=== PATIENT | female | born 1945 | race Caucasian/White ===

== ENCOUNTER 2018-09-12 13:57 | Emergency (ER) | payer OTHER ==
[2018-09-12 14:13] VITALS: BP 121/64; PULSE 89; TEMP 98; BMI 27.7
--- NOTE | 2018-09-12 14:49 | PDOC ---
History of Present Illness - General Chief Complaint: Wound Stated Complaint: CYST ON NECK Time Seen by Provider: 09/12/18 14:35 History Source: Patient Exam Limitations: No Limitations - History of Present Illness Initial Comments: 09/12/18 14:42 HISTORY OF PRESENT ILLNESS: This is a 73-year-old woman past medical history of hypertension, hyperlipidemia and COPD who presents emergency department for evaluation of "bump" to the right side of her posterior neck. Patient reports which she described as an ingrown hair which is progressively gotten more painful and swollen over the past 4 days. Patient reports inability to put her head down due to pain. She denies any discharge or drainage from the wound, fevers, chills, headaches or blurred vision. No recent travel or sick contacts. PAST MEDICAL HISTORY: HTN, HLD, COPD SURGICAL HISTORY: Denies ALLERGIES: No known drug allergies REVIEW OF SYSTEMS General/Constitutional: Denies fever or chills. Denies weakness, weight change. HEENT: Denies change in vision. Denies ear pain or discharge. Denies sore throat. Cardiovascular: Denies chest pain or shortness of breath. Respiratory: Denies cough, wheezing, or hemoptysis. Gastrointestinal: Denies nausea, vomiting, diarrhea or constipation. Denies rectal bleeding. Genitourinary: Denies dysuria, frequency, or change in urination. Musculoskeletal: Denies joint or muscle swelling or pain. Denies neck or back pain. Skin and breasts: see HPI Neurologic: Denies headache, vertigo, loss of consciousness, or loss of sensation. Psychiatric: Denies depression or anxiety. Endocrine: Denies increased thirst. Denies abnormal weight change. Hematologic/Lymphatic: Denies anemia, easy bleeding, or history of blood clots. Allergic/Immunologic: Denies hives or skin allergy. Denies latex allergy. PHYSICAL EXAM General Appearance: Well-appearing, appropriately dressed. No apparent distress , no intoxication. HEENT: EOMI, PERRLA, normal ENT inspection, normal voice, TMs normal, pharynx normal. No conjunctival pallor. No photophobia, scleral icterus. Neck: Supple. Trachea midline. No tenderness, rigidity, carotid bruit, stridor , lymphadenopathy, or thyromegaly. Respiratory/Chest: Lungs CTAB. No shortness of breath, chest tenderness, respiratory distress, accessory muscle use. No crackles, rales, rhonchi, stridor , wheezing, dullness Cardiovascular: RRR. S1, S2. No JVD, murmur, bradycardia, tachycardia. Vascular Pulses: Dorsalis-Pedis (R): 2+, Dorsalis-Pedis (L): 2+ Gastrointestinal/Abdominal: Normal bowel sounds. Abdomen soft, non-distended. No tenderness or rebound tenderness. No organomegaly, pulsatile mass, guarding, hernia, hepatomegaly, splenomegaly. Lymphatic: No adenopathy, tenderness. Musculoskeletal/Extremities: Normal inspection. FROM of all extremities, normal capillary refill. Pelvis Stable. No CVA tenderness. No tenderness to extremities, pedal edema, swelling, erythema or deformity. Integumentary: 4 cm circular area of induration present to right posterior lateral neck. 2 cm circular area of erythema present in the center of the induration. No fluctuance palpated. Unable to express fluid from wound. Full range of motion of neck noted. Neurologic: director medicaid II-XII intact. Fully oriented, alert. Appropriate mood/affect. Motor strength 5/5. No appreciable EOM palsy, facial droop or sensory deficit. Past History - Past Medical History Allergies/Adverse Reactions: Allergies Allergy/AdvReac Type Severity Reaction Status Date / Time No Known Allergies Allergy Verified 09/12/18 14:06 Home Medications: Ambulatory Orders Amlodipine Besylate [Norvasc -] 5 mg PO DAILY 09/12/18 Atorvastatin Calcium 40 mg PO HS 09/12/18 Budesonide/Formeterol Fumarate [SYMBICORT 160/4.5mcg -] 1 inh PO BID 09/12/18 Cephalexin Monohydrate [Keflex -] 500 mg PO Q6H #28 capsule 09/12/18 Losartan/Hydrochlorothiazide [Losartan-Hctz 100-25 mg Tab] 1 each PO DAILY 09/12 Sulfamethoxazole/Trimethoprim [Bactrim Ds -] 1 tab PO BID #14 tablet 09/12/18 Tiotropium [place] [Spiriva] 1 inh PO DAILY 09/12/18 COPD: Yes HTN: Yes Hypercholesterolemia: Yes - Suicide/Smoking/Psychosocial Hx Smoking History: Current every day smoker Information on smoking cessation initiated: No *Physical Exam - Vital Signs Last Vital Signs Temp Pulse Resp BP Pulse Ox 98 F 89 18 121/64 98 09/12/18 14:11 09/12/18 14:11 09/12/18 14:11 09/12/18 14:11 09/12/18 14:11 Moderate Sedation - Procedure Monitoring Vital Signs: Procedure Monitoring Vital Signs Temperature 98 F 09/12/18 14:11 Pulse Rate 89 09/12/18 14:11 Respiratory Rate 18 09/12/18 14:11 Blood Pressure 121/64 09/12/18 14:11 O2 Sat by Pulse Oximetry (%) 98 09/12/18 14:11 Medical Decision Making - Medical Decision Making 09/12/18 14:42 A/P: 73-year-old woman with cellulitis to the posterior of her neck 4 cm circular area of induration noted to the right lateral posterior neck. 2 cm circular area of erythema noted in the center No fluctuance noted Unable to express any fluid We'll discharge the patient home to continue using warm soaks the prescription for Keflex and Bactrim. Patient has been instructed to return to care in 2 days for reevaluation of her wound at that time. I discussed the physical exam findings, ancillary test results and final diagnoses with the patient. I answered all of the patient's questions. The patient was satisfied with the care received and felt comfortable with the discharge plan and treatment plan. The patient will call their primary care physician within 24 hours to arrange follow-up and will return to the Emergency Department with any new, persistent or worsening symptoms. *DC/Admit/Observation/Transfer Diagnosis at time of Disposition: Cellulitis Qualifiers: Site of cellulitis: neck Qualified Code(s): L03.221 - Cellulitis of neck - Discharge Dispostion Disposition: HOME Condition at time of disposition: Stable Decision to Admit order: No - Prescriptions Prescriptions: Cephalexin Monohydrate [Keflex -] 500 mg PO Q6H #28 capsule Sulfamethoxazole/Trimethoprim [Bactrim Ds -] 1 tab PO BID #14 tablet - Referrals Referrals: Jass Brown MD [Primary Care Provider] - - Patient Instructions Additional Instructions: Take Keflex 500 mg 4 times a day for the next 7 days Take Bactrim DS one tablet twice a day for the next 7 days Finish all antibiotics even if you feel better. Apply warm compresses to affected area as needed. Return to emergency department for any worsening pain, drainage,fevers, change in behavior or any other concerns. Thank you very much for choosing us to provide your emergent health care needs. - Post Discharge Activity
== END 2018-09-12 14:58 | disposition home or self-care (01) ==
LOC: JERFT 13:57
DX: L03.221 Cellulitis of neck (principal); I10 Essential (primary) hypertension; E78.00 Pure hypercholesterolemia, unspecified; J44.9 Chronic obstructive pulmonary disease, unspecified
CPT/HCPCS: 99281-25

== ENCOUNTER 2018-09-14 08:42 | Emergency (ER) | payer OTHER ==
[2018-09-14 08:47] VITALS: BP 98/60; PULSE 98; TEMP 98.4; BMI 27.7
--- NOTE | 2018-09-14 09:25 | PDOC ---
Suture Removal/Wound Check HPI - History of Present Illness Chief Complaint: Revisit,Wound Recheck Stated Complaint: FOLLOW UP / CYST ON NECK Time Seen by Provider: 09/14/18 09:16 History Source: Yes: Patient Exam Limitations: Yes: No Limitations - Previous ED Treatment Tetanus Immunization: Yes: Up to Date (73y/o F with R posterior neck abscess here for wound check) Past History - Travel Traveled outside of the country in the last 30 days: No Close contact w/someone who was outside of country & ill: No - Past Medical History Allergies/Adverse Reactions: Allergies Allergy/AdvReac Type Severity Reaction Status Date / Time No Known Allergies Allergy Verified 09/14/18 08:45 Home Medications: Ambulatory Orders Amlodipine Besylate [Norvasc -] 5 mg PO DAILY 09/12/18 Atorvastatin Calcium 40 mg PO HS 09/12/18 Budesonide/Formeterol Fumarate [SYMBICORT 160/4.5mcg -] 1 inh PO BID 09/12/18 Cephalexin Monohydrate [Keflex -] 500 mg PO Q6H #28 capsule 09/12/18 Losartan/Hydrochlorothiazide [Losartan-Hctz 100-25 mg Tab] 1 each PO DAILY 09/12 Sulfamethoxazole/Trimethoprim [Bactrim Ds -] 1 tab PO BID #14 tablet 09/12/18 Tiotropium [place] [Spiriva] 1 inh PO DAILY 09/12/18 COPD: Yes HTN: Yes Hypercholesterolemia: Yes - Suicide/Smoking/Psychosocial Hx Smoking History: Current every day smoker Information on smoking cessation initiated: No Suture Removal/Wound Check PE - Physical Exam Location of Laceration/Wound: right: Head (posterior neck) *Review of Systems - Review of Systems Constitutional: No: Chills, Fever Cardiac (ROS): No: Lightheadedness Integumentary: Yes: Other (posterior neck abscess) Neurological: No: Headache *Physical Exam - Vital Signs Last Vital Signs Temp Pulse Resp BP Pulse Ox 98.4 F 98 H 20 98/60 99 09/14/18 08:45 09/14/18 08:45 09/14/18 08:45 09/14/18 08:45 09/14/18 08:45 - Physical Exam General Appearance: Yes: Nourished Respiratory/Chest: positive: Lungs Clear, Normal Breath Sounds Cardiovascular: positive: Regular Rhythm, Regular Rate, S1, S2 Integumentary: positive: Erythema, Other (3cm indurated area in lateral posterior neck, no fluctance, no streaking or discharge noted. no warmth) Moderate Sedation - Procedure Monitoring Vital Signs: Procedure Monitoring Vital Signs Temperature 98.4 F 09/14/18 08:45 Pulse Rate 98 H 09/14/18 08:45 Respiratory Rate 20 09/14/18 08:45 Blood Pressure 98/60 09/14/18 08:45 O2 Sat by Pulse Oximetry (%) 99 09/14/18 08:45 Medical Decision Making - Medical Decision Making 09/14/18 09:29 73 years old female seen in the emergency room 2 days ago for posterior lateral neck lump, no fluctuance on exam, I&D was not done. Patient was started on Keflex and Bactrim and was advised to return to the emergency room in 2 days for wound check. Today Patient returns for wound check she denies any fevers any chills she is compliant with antibiotic as previously recommended and she admitted to apply warm compresses. She did admits to some discomfort in the area but no headaches. Physical examination consistent with a 3 cm indurated mass in the right lateral neck there is no fluctuant there is no streaking in no warmth. Patient recommended to continue warm compresses and antibiotic return to the emergency room in 2 days for another wound check. Strict return instructions also given fever chills or headaches or worsening swelling. *DC/Admit/Observation/Transfer Diagnosis at time of Disposition: Wound check, abscess - Discharge Dispostion Disposition: HOME Condition at time of disposition: Good Decision to Admit order: No - Referrals Referrals: Jass Brown MD [Primary Care Provider] - - Patient Instructions Printed Discharge Instructions: DI for Wound Infection Additional Instructions: Please Take antibiotics as previously prescribed Apply warm compresses 3-4 times a day to the affected area. Return to the emergency room in 2 days for wound check You may return sooner if there is worsening redness or swelling to the area. Otherwise follow-up with primary care doctor - Post Discharge Activity
== END 2018-09-14 09:38 | disposition home or self-care (01) ==
LOC: JERFT 08:42
DX: Z09 Encounter for follow-up examination after completed treatment for conditions other than malignant neoplasm (principal); R22.1 Localized swelling, mass and lump, neck
CPT/HCPCS: 99281-25

== ENCOUNTER 2020-10-25 15:01 | Inpatient (IN) | payer OTHER ==
[2020-10-25] MEDS ORDERED: SODIUM CHLORIDE 0.9% 1000 ML INFUS.BAG IV ONE (16:00)
[2020-10-25 16:26] LABS: BASO % 0.4 % (0-2.0); EOS % 0.4 % (0-4.5); HEMATOCRIT 29.2 % (32.4-45.2); HEMOGLOBIN 9.4 GM/dL (10.7-15.3); LYMPH % 6.5 % (8-40); MCH 29.1 pg (25.7-33.7); MCHC 32.3 g/dl (32.0-36.0); MEAN CELL VOLUME 90.1 fl (80-96); MEAN PLT VOLUME 9.7 fl (7.5-11.1); MONO % 7.9 % (3.8-10.2); NEUT % 84.8 % (42.8-82.8); PLATELET COUNT 153 K/MM3 (134-434); RBC 3.24 M/mm3 (3.60-5.2); RDW 13.8 % (11.6-15.6); WHITE BLOOD COUNT 12.8 K/mm3 (4.0-10.0)
[2020-10-25 16:34] LABS: INR 1.01 (0.83-1.09); PROTHROMBIN TIME (PATIENT) 12.2 SEC (9.7-13.0)
[2020-10-25 16:36] LABS: ACTIVATED PTT 26.4 SECONDS (25.2-36.5)
[2020-10-25 16:37] LABS: CHLORIDE 110 mmol/L (98-107); POTASSIUM 4.6 mmol/L (3.5-5.1); SODIUM 142 mmol/L (136-145)
[2020-10-25 16:39] LABS: CALCIUM 8.4 mg/dL (8.5-10.1)
[2020-10-25 16:40] LABS: ALBUMIN 2.7 g/dl (3.4-5.0); ANION GAP 9 MMOL/L (8-16); BLOOD UREA NITROGEN 38.6 mg/dL (7-18); CO2 24 mmol/L (21-32); GLUCOSE,RANDOM 108 mg/dL (74-106)
[2020-10-25 16:43] LABS: CREATININE 1.7 mg/dL (0.55-1.3); SGOT/AST 25 U/L (15-37); SGPT/ALT 23 U/L (13-61)
[2020-10-25 16:45] LABS: BILIRUBIN,TOTAL 0.6 mg/dL (0.2-1); TOT PROT 5.6 g/dl (6.4-8.2)
[2020-10-25 16:46] LABS: ALK PHOS 115 U/L (45-117)
[2020-10-25] MEDS ORDERED: CLINDAMYCIN 600MG PREMIX IVPB 600 MG/50 ML BAG IVPB ONE ×2 (16:55→17:45)
[2020-10-25] MEDS ORDERED: SODIUM CHLORIDE 1,000 ML IV SCH (23:45)
[2020-10-25] MEDS ORDERED: ACETAMINOPHEN 325 MG TABLET (FP) PO PRN (23:46)
[2020-10-26] MEDS ORDERED: CLINDAMYCIN 600MG PREMIX IVPB 600 MG/50 ML BAG IVPB ONE ×2 (04:01→10:13)
[2020-10-26] MEDS ORDERED: PIPERACILLIN/TAZOB 3.375 GM 3.375 GM/50 ML BAG IVPB ONE ×2 (04:01→10:14)
[2020-10-26] MEDS: CLINDAMYCIN 600MG PREMIX IVPB 600 MG/50 ML BAG IVPB SCH ×2 (04:18→10:36)
[2020-10-26] MEDS: PIPERACILLIN/TAZOB 3.375 GM 3.375 GM in DEXTROSE 5%-WATER - 50 ML IVPB SCH ×2 (06:39→10:41)
[2020-10-26 07:35] LABS: BASO % 0.8 % (0-2.0); EOS % 1.3 % (0-4.5); HEMATOCRIT 28.9 % (32.4-45.2); HEMOGLOBIN 9.7 GM/dL (10.7-15.3); MCH 30.2 pg (25.7-33.7); MCHC 33.6 g/dl (32.0-36.0); MEAN CELL VOLUME 89.7 fl (80-96); MEAN PLT VOLUME 9.9 fl (7.5-11.1); NEUT % 70.9 % (42.8-82.8); PLATELET COUNT 164 K/MM3 (134-434); RBC 3.22 M/mm3 (3.60-5.2); WHITE BLOOD COUNT 9.2 K/mm3 (4.0-10.0)
[2020-10-26] MEDS: HEPARIN NA (PORCINE) 5,000 UNITS/ML 1ML VIAL SQ SCH ×3 (07:45→23:23)
[2020-10-26 07:52] LABS: POTASSIUM 4.1 mmol/L (3.5-5.1)
[2020-10-26 08:00] LABS: ALBUMIN 2.8 g/dl (3.4-5.0); BLOOD UREA NITROGEN 31.9 mg/dL (7-18); CALCIUM 8.6 mg/dL (8.5-10.1); TOT PROT 6.2 g/dl (6.4-8.2)
[2020-10-26 08:01] LABS: MAGNESIUM 1.9 mg/dL (1.8-2.4)
[2020-10-26] MEDS ORDERED: HEPARIN NA (PORCINE) 5,000 UNITS/ML 1ML VIAL ONE ×2 (08:01→14:47)
[2020-10-26 08:03] LABS: CREATININE 1.3 mg/dL (0.55-1.3); PHOSPHOROUS 3.1 mg/dL (2.5-4.9)
[2020-10-26 08:04] LABS: BILIRUBIN,TOTAL 0.7 mg/dL (0.2-1)
[2020-10-26] MEDS: BUDESONIDE/FORMETEROL FUMARATE 160/4.5 mcg INHALER IH SCH ×2 (10:37→23:23)
[2020-10-26] MEDS: VANCOMYCIN/WATER BAGS 1,250 MG/250 ML BAG IVPB SCH (13:45)
[2020-10-26] MEDS ORDERED: SODIUM CHLORIDE 1,000 ML IV SCH (14:58)
[2020-10-26] MEDS ORDERED: SODIUM CHLORIDE 250 ML IV STA (16:18)
[2020-10-26 19:35] LABS: URINE APPEARANCE CLEAR; URINE BILIRUBIN NEGATIVE (NEGATIVE); URINE COLOR YELLOW; URINE GLUCOSE (UA) NEGATIVE (NEGATIVE); URINE KETONE NEGATIVE (NEGATIVE); URINE LEUK ESTERASE NEGATIVE (NEGATIVE); URINE NITRITE NEGATIVE (NEGATIVE); URINE PROTEIN NEGATIVE (NEGATIVE)
[2020-10-26] MEDS ORDERED: PT OWN MED DRAWER 7, Y5N ONE (22:59)
[2020-10-26] MEDS ORDERED: ATORVASTATIN CA 40 MG TABLET (FP) ONE (22:59)
[2020-10-26] MEDS: ATORVASTATIN CA 40 MG TABLET (FP) PO SCH (23:03)
[2020-10-27] MEDS ORDERED: PIPERACILLIN/TAZOB 3.375 GM 3.375 GM in DEXTROSE 5%-WATER - 50 ML IVPB SCH (02:00)
[2020-10-27 03:44] VITALS: BMI 26.6
[2020-10-27] MEDS: HEPARIN NA (PORCINE) 5,000 UNITS/ML 1ML VIAL SQ SCH ×2 (06:31→13:33)
[2020-10-27 07:47] LABS: HEMATOCRIT 28.8 % (32.4-45.2); HEMOGLOBIN 9.8 GM/dL (10.7-15.3); MCH 30.4 pg (25.7-33.7); MEAN CELL VOLUME 89.5 fl (80-96); MEAN PLT VOLUME 10.4 fl (7.5-11.1); PLATELET COUNT 156 K/MM3 (134-434); RBC 3.22 M/mm3 (3.60-5.2); WHITE BLOOD COUNT 8.1 K/mm3 (4.0-10.0)
[2020-10-27 08:15] LABS: POTASSIUM 3.9 mmol/L (3.5-5.1)
[2020-10-27 08:21] LABS: CALCIUM 8.4 mg/dL (8.5-10.1)
[2020-10-27 08:22] LABS: ALBUMIN 2.8 g/dl (3.4-5.0); BLOOD UREA NITROGEN 27.6 mg/dL (7-18)
[2020-10-27 08:25] LABS: CREATININE 1.2 mg/dL (0.55-1.3)
[2020-10-27 08:26] LABS: PHOSPHOROUS 2.8 mg/dL (2.5-4.9)
[2020-10-27 08:27] LABS: BILIRUBIN,TOTAL 0.7 mg/dL (0.2-1); TOT PROT 6.1 g/dl (6.4-8.2)
[2020-10-27] MEDS: BUDESONIDE/FORMETEROL FUMARATE 160/4.5 mcg INHALER IH SCH ×2 (09:56→21:44)
[2020-10-27] MEDS: VANCOMYCIN/WATER BAGS 1,250 MG/250 ML BAG IVPB SCH (12:52)
[2020-10-27] MEDS: ATORVASTATIN CA 40 MG TABLET (FP) PO SCH (21:41)
[2020-10-28 07:55] LABS: INR 0.89 (0.83-1.09); PROTHROMBIN TIME (PATIENT) 10.8 SEC (9.7-13.0)
[2020-10-28 08:02] LABS: BASO % 0.9 % (0-2.0); EOS % 2.9 % (0-4.5); HEMATOCRIT 29.6 % (32.4-45.2); HEMOGLOBIN 10.1 GM/dL (10.7-15.3); LYMPH % 25.3 % (8-40); MCH 30.5 pg (25.7-33.7); MEAN CELL VOLUME 89.6 fl (80-96); MEAN PLT VOLUME 10.3 fl (7.5-11.1); MONO % 11.3 % (3.8-10.2); NEUT % 59.6 % (42.8-82.8); PLATELET COUNT 160 K/MM3 (134-434); WHITE BLOOD COUNT 7.9 K/mm3 (4.0-10.0)
[2020-10-28 08:05] LABS: POTASSIUM 4.1 mmol/L (3.5-5.1)
[2020-10-28 08:08] LABS: CALCIUM 8.6 mg/dL (8.5-10.1)
[2020-10-28 08:12] LABS: CREATININE 1.1 mg/dL (0.55-1.3); PHOSPHOROUS 3.3 mg/dL (2.5-4.9)
[2020-10-28] MEDS: BUDESONIDE/FORMETEROL FUMARATE 160/4.5 mcg INHALER IH SCH ×2 (11:17→21:46)
[2020-10-28] MEDS ORDERED: LIDOCAINE 1%/EPI 1:100000 (50 ML MULTI DOSE VIAL) ONE (13:14)
[2020-10-28] MEDS ORDERED: CEFAZOLIN 2 GM/D5W 2 GM/50 ML ML IVPB SCH (13:30)
[2020-10-28] MEDS: VANCOMYCIN/WATER BAGS 1,250 MG/250 ML BAG IVPB SCH (13:42)
[2020-10-28] MEDS ORDERED: PROPOFOL 20 ML ONE ×2 (14:27)
[2020-10-28] MEDS ORDERED: ceFAZolin SODIUM 1 GM VIAL IVPB ONE (14:30)
[2020-10-28] MEDS ORDERED: LIDOCAINE 1%/EPI 1:100000 (20 ML MULTI DOSE VIAL) IJ ONE ×3 (14:33→14:45)
[2020-10-28] MEDS ORDERED: MUPIROCIN CA 2% TOPICAL CREAM 15 GM TUBE TP ONE (14:55)
[2020-10-28] MEDS ORDERED: ONDANSETRON 4 MG/2 ML VIAL IVPUSH PRN ×2 (15:24→15:42)
[2020-10-28] MEDS ORDERED: LACTATED RINGERS SOLUTION 1,000 ML IV SCH ×2 (15:30→15:42)
[2020-10-28] MEDS ORDERED: ACETAMINOPHEN 325 MG TABLET (FP) PO PRN (15:42)
[2020-10-28] MEDS: CEFAZOLIN 2 GM/D5W 2 GM/50 ML ML IVPB SCH (18:38)
[2020-10-28] MEDS: ATORVASTATIN CA 40 MG TABLET (FP) PO SCH (21:43)
[2020-10-28] MEDS: MUPIROCIN CA 2% TOPICAL CREAM 15 GM TUBE TP SCH (21:43)
[2020-10-28] MEDS ORDERED: HEPARIN NA (PORCINE) 5,000 UNITS/ML 1ML VIAL SQ SCH (22:00)
[2020-10-28] MEDS ORDERED: MUPIROCIN CA 2% TOPICAL CREAM 15 GM TUBE TP SCH (22:00)
[2020-10-29] MEDS: CEFAZOLIN 2 GM/D5W 2 GM/50 ML ML IVPB SCH ×3 (01:35→17:30)
[2020-10-29 07:17] LABS: BASO % 1.1 % (0-2.0); EOS % 2.4 % (0-4.5); HEMATOCRIT 29.6 % (32.4-45.2); MCH 30.6 pg (25.7-33.7); MCHC 33.9 g/dl (32.0-36.0); MEAN CELL VOLUME 90.2 fl (80-96); MEAN PLT VOLUME 10.2 fl (7.5-11.1); MONO % 10.6 % (3.8-10.2); NEUT % 62.9 % (42.8-82.8); PLATELET COUNT 159 K/MM3 (134-434); RBC 3.28 M/mm3 (3.60-5.2); WHITE BLOOD COUNT 7.8 K/mm3 (4.0-10.0)
[2020-10-29 07:37] LABS: CALCIUM 8.7 mg/dL (8.5-10.1); POTASSIUM 4.1 mmol/L (3.5-5.1)
[2020-10-29 07:38] LABS: BLOOD UREA NITROGEN 17.4 mg/dL (7-18)
[2020-10-29 07:42] LABS: CREATININE 1.1 mg/dL (0.55-1.3)
[2020-10-29] MEDS ORDERED: PT OWN MED DRAWER 7, Y5N ONE (08:59)
[2020-10-29] MEDS: BUDESONIDE/FORMETEROL FUMARATE 160/4.5 mcg INHALER IH SCH ×2 (09:30→21:28)
[2020-10-29] MEDS: MUPIROCIN CA 2% TOPICAL CREAM 15 GM TUBE TP SCH ×2 (10:21→21:27)
[2020-10-29] MEDS: ATORVASTATIN CA 40 MG TABLET (FP) PO SCH (21:27)
[2020-10-29] MEDS: HEPARIN NA (PORCINE) 5,000 UNITS/ML 1ML VIAL SQ SCH (21:28)
[2020-10-30] MEDS: CEFAZOLIN 2 GM/D5W 2 GM/50 ML ML IVPB SCH ×3 (00:59→17:38)
[2020-10-30 06:37] LABS: BASO % 0.9 % (0-2.0); EOS % 2.4 % (0-4.5); HEMOGLOBIN 9.3 GM/dL (10.7-15.3); LYMPH % 25.1 % (8-40); MCH 30.1 pg (25.7-33.7); MCHC 33.3 g/dl (32.0-36.0); MEAN CELL VOLUME 90.5 fl (80-96); MEAN PLT VOLUME 10.3 fl (7.5-11.1); MONO % 11.9 % (3.8-10.2); NEUT % 59.7 % (42.8-82.8); PLATELET COUNT 165 K/MM3 (134-434); RBC 3.09 M/mm3 (3.60-5.2); RDW 13.9 % (11.6-15.6)
[2020-10-30] MEDS: HEPARIN NA (PORCINE) 5,000 UNITS/ML 1ML VIAL SQ SCH ×2 (10:37→21:43)
[2020-10-30] MEDS: BUDESONIDE/FORMETEROL FUMARATE 160/4.5 mcg INHALER IH SCH ×2 (10:38→21:43)
[2020-10-30] MEDS: MUPIROCIN CA 2% TOPICAL CREAM 15 GM TUBE TP SCH ×2 (10:42→21:42)
[2020-10-30] MEDS: ATORVASTATIN CA 40 MG TABLET (FP) PO SCH (21:43)
[2020-10-31] MEDS: CEFAZOLIN 2 GM/D5W 2 GM/50 ML ML IVPB SCH ×2 (01:01→11:44)
[2020-10-31 08:17] LABS: BASO % 1.4 % (0-2.0); EOS % 2.2 % (0-4.5); HEMATOCRIT 27.4 % (32.4-45.2); HEMOGLOBIN 9.5 GM/dL (10.7-15.3); LYMPH % 23.3 % (8-40); MCH 30.8 pg (25.7-33.7); MCHC 34.5 g/dl (32.0-36.0); MEAN CELL VOLUME 89.4 fl (80-96); MEAN PLT VOLUME 10.5 fl (7.5-11.1); MONO % 11.9 % (3.8-10.2); NEUT % 61.2 % (42.8-82.8); PLATELET COUNT 173 K/MM3 (134-434); RBC 3.07 M/mm3 (3.60-5.2); RDW 13.8 % (11.6-15.6); WHITE BLOOD COUNT 8.7 K/mm3 (4.0-10.0)
[2020-10-31 08:18] LABS: CHLORIDE 110 mmol/L (98-107); POTASSIUM 3.9 mmol/L (3.5-5.1); SODIUM 141 mmol/L (136-145)
[2020-10-31 08:24] LABS: ALBUMIN 2.6 g/dl (3.4-5.0); ANION GAP 4 MMOL/L (8-16); BLOOD UREA NITROGEN 21.3 mg/dL (7-18); CALCIUM 8.5 mg/dL (8.5-10.1); CO2 26 mmol/L (21-32); GLUCOSE,RANDOM 88 mg/dL (74-106)
[2020-10-31 08:27] LABS: SGOT/AST 30 U/L (15-37); SGPT/ALT 18 U/L (13-61)
[2020-10-31 08:28] LABS: BILIRUBIN,TOTAL 0.4 mg/dL (0.2-1); TOT PROT 5.9 g/dl (6.4-8.2)
[2020-10-31 08:29] LABS: ALK PHOS 148 U/L (45-117)
[2020-10-31] MEDS: BUDESONIDE/FORMETEROL FUMARATE 160/4.5 mcg INHALER IH SCH (09:00)
[2020-10-31] MEDS ORDERED: REGADENOSON 0.4 MG/5 ML PRE-FILLED SYRINGE IVPUSH ONE ×2 (10:07→10:30)
[2020-10-31] MEDS ORDERED: PT OWN MED DRAWER 7, Y5N ONE (11:16)
[2020-10-31] MEDS: MUPIROCIN CA 2% TOPICAL CREAM 15 GM TUBE TP SCH (11:44)
[2020-10-31] MEDS: HEPARIN NA (PORCINE) 5,000 UNITS/ML 1ML VIAL SQ SCH (11:44)
[2020-10-31 17:16] VITALS: BP 130/74; PULSE 69; TEMP 98.5
== END 2020-10-31 17:58 | disposition home or self-care (01) | DRG 571 ==
LOC: JER 15:01 → JERBED 16:29 → J4W 10-27 00:28
PROVIDERS: ADMIT Internal Medicine; ATTEND Nurse Practitioner Family
PROC: 0HQ0XZZ Repair Scalp Skin, External Approach (ICD-10-PCS; 2020-10-25)
PROC: 0JB10ZZ Excision of Face Subcutaneous Tissue and Fascia, Open Approach (ICD-10-PCS; principal; 2020-10-28 14:30)
DX: L02.01 Cutaneous abscess of face (principal); N17.9 Acute kidney failure, unspecified; I10 Essential (primary) hypertension; E78.5 Hyperlipidemia, unspecified; J44.9 Chronic obstructive pulmonary disease, unspecified; E86.0 Dehydration; E66.9 Obesity, unspecified; Z68.26 Body mass index [BMI] 26.0-26.9, adult; D64.9 Anemia, unspecified; R55 Syncope and collapse; E86.1 Hypovolemia; I44.0 Atrioventricular block, first degree; S09.90XA Unspecified injury of head, initial encounter; S01.01XA Laceration without foreign body of scalp, initial encounter; W18.39XA Other fall on same level, initial encounter; Y92.89 Other specified places as the place of occurrence of the external cause; Y99.8 Other external cause status; B95.61 Methicillin susceptible Staphylococcus aureus infection as the cause of diseases classified elsewhere
CPT/HCPCS: 36415; 70450-TC; 71045-TC-FY; 72125-TC; 78452-TC; 80048; 80053; 81003; 82570; 82728; 83036; 83540; 83550; 83605; 83735; 84100; 84156; 84300; 84443; 84484; 84540; 85025; 85027; 85045; 85610; 85730; 86850; 86900; 86901; 87040; 87070; 87081; 87086; 87186; 87205; 88304-TC; 93005; 93010; 93017; 93306-TC; 93880-TC; 94760; 97116-GP; 97161-GP; 99285-25; A9502; C9803; J1644; J2785; U0003; U0005

== ENCOUNTER 2021-03-07 04:39 | Day surgery (SDC) | payer OTHER ==
[2021-03-02 19:06] VITALS: BMI 29.1
[2021-03-07] MEDS ORDERED: ALBUTEROL SO4 HFA INHALER IH ONE (08:44)
[2021-03-07 09:40] VITALS: TEMP 97.6
[2021-03-07 10:22] VITALS: BP 144/70; PULSE 71
== END 2021-03-07 10:26 | disposition home or self-care (01) ==
LOC: JASU-ENDO 04:39
PROVIDERS: ATTEND Internal Medicine Gastroenterology
PROC: 0DBN8ZX Excision of Sigmoid Colon, Via Natural or Artificial Opening Endoscopic, Diagnostic (ICD-10-PCS; 2021-03-07)
PROC: 0DBP8ZX Excision of Rectum, Via Natural or Artificial Opening Endoscopic, Diagnostic (ICD-10-PCS; principal; 2021-03-07 09:00)
DX: D64.9 Anemia, unspecified (principal); D12.7 Benign neoplasm of rectosigmoid junction; D12.5 Benign neoplasm of sigmoid colon; K64.8 Other hemorrhoids
CPT/HCPCS: 88305-TC